=== PATIENT | female | born 1985 ===

== ENCOUNTER 2018-05-03 20:18 | Emergency (ER) | payer SELFPAY ==
[2018-05-03 21:18] VITALS: BP 103/67; PULSE 83; RESP 16; TEMP 98; O2SAT 99
[2018-05-03] MEDS ORDERED: Promethazine/Cod 6.25mg-10mg/5ml Syr UD PO STA (21:24)
[2018-05-03] MEDS ORDERED: Promethazine/Cod 6.25mg-10mg/5ml Syr UD ONE (21:31)
--- NOTE | 2018-05-03 21:33 | ED PDOC ---
HPI: Influenza Time Seen by Provider: 05/03/18 21:19 Chief Complaint: Cough, Cold, Congestion Chief Complaint (Provider): Cough, Throat Pain, Headache, Ear Pain History Per: Patient Exam Limitations: no limitations Onset/Duration Of Symptoms: Days Additional complaint(s):: 32 year old female presents for evaluation of a wet cough productive of green sputum, 9/10 throat pain, a 9/10 frontal headache, and right ear pain onset one week. Patient also reports chest pain exclusively with coughing episodes. She notes last taking Ibuprofen at 17:00 today with minimal relief. Otherwise, (-) fever, (-) chills, (-) diarrhea, (-) vomiting, (-) rash, (-) urinary symptoms, ( -) recent travel, (-) sick contact. LNMP: 04/27/2018 PMD: Clinic Past Medical History Reviewed: Historical Data, Nursing Documentation, Vital Signs Vital Signs: Last Vital Signs Temp 98 F 05/03/18 21:15 Pulse 83 05/03/18 21:15 Resp 16 05/03/18 21:15 BP 103/67 05/03/18 21:15 Pulse Ox 99 05/03/18 21:15 - Medical History Other PMH: ovarian cysts - Surgical History Surgical History: No Surg Hx - Family History Family History: States: Unknown Family Hx - Social History Current smoker - smoking cessation education provided: No Alcohol: None Drugs: Denies - Immunization History Hx Tetanus Toxoid Vaccination: No Hx Influenza Vaccination: No Hx Pneumococcal Vaccination: No - Home Medications Home Medications: Ambulatory Orders Medication Instructions Recorded Multivit/Folic Acid/I 1 tab PO DAILY #30 tab 10/12/16 [ Plus] Acetaminophen [Acetaminophen 8 650 mg PO Q8 PRN #21 tablet.er 05/03/18 Hour] Amoxicillin 875 mg PO BID #14 tablet 05/03/18 Naproxen [Naprosyn] 500 mg PO BID PRN #20 tablet 05/03/18 Promethazine/Dextromethorphan 5 ml PO Q6 PRN #150 ml 05/03/18 [Promethazine-Dm Syrup] - Allergies Allergies/Adverse Reactions: Allergies Allergy/AdvReac Type Severity Reaction Status Date / Time No Known Allergies Allergy Verified 10/12/16 20:36 Review of Systems ROS Statement: Except As Marked, All Systems Reviewed And Found Negative Constitutional: Negative for: Fever, Chills ENT: Positive for: Ear Pain (right), Throat Pain Cardiovascular: Positive for: Chest Pain (exclusively with coughing episodes) Respiratory: Positive for: Cough (wet), Sputum (green) Gastrointestinal: Negative for: Vomiting, Diarrhea Genitourinary Female: Negative for: Dysuria, Frequency Skin: Negative for: Rash Neurological: Positive for: Headache (frontal) Physical Exam - Reviewed Nursing Documentation Reviewed: Yes Vital Signs Reviewed: Yes - Physical Exam Comments: GENERAL APPEARANCE: Patient is awake, alert, oriented x 3, in no acute distress. SKIN: Warm, dry; (-) cyanosis, (-) rash. EYES: (-) conjunctival pallor, (-) scleral icterus, (-) conjunctival hemorrhage. ENMT: Mucous membranes moist. (-) rhinorrhea. TMs: (-) erythema, (-) bulging. Airway patent: (-) stridor. Pharynx: (+) erythema, (+) exudate, (+2 ) tonsillar hypertrophy. NECK: (-) tenderness, (-) stiffness, (-) meningismus, (-) lymphadenopathy. ABDOMEN AND GI: Soft; (-) tenderness, (-) guarding; (-) organomegaly; (-) mass ; (-) CVA tenderness. CHEST AND RESPIRATORY: (-) rales, (-) rhonchi, (-) wheezes; respirations even and non labored. HEART AND CARDIOVASCULAR: (-) irregularity; (-) murmur, (-) gallop. EXTREMITIES: (-) deformity; (-) cellulitis, (-) lymphangitis; (-) subungual hemorrhage; (-) edema. NEURO AND PSYCH: Mental status as above; (-) focal findings. Medical Decision Making Medical Decision Making: Time: 2123 Initial Impression: tonsillitis, headache, cough Initial Plan: --Amoxicillin 500 mg PO --Decadron 10 mg PO --Promethazine/Codeine 5 ml PO --Tylenol 650 mg PO --Throat culture --Rapid strep 2219 Patient reports persistent cough. Duoneb 3mL INH x1 ordered. 2249 Patient reports improvement of cough and is requesting additional Duoneb treatment. Duoneb 3mL INH ordered. 2324 Rapid Strep: negative On re-evaluation, patient reports improvement of symptoms, denies chest pain, SOB, headache, dizziness, nausea. On exam, patient remains AAOx3, in no acute distress. Neck is supple, lungs CTA, cardiac RRR, abdomen is soft and non-tender , neuro exam shows no focal findings. VSS, stable for discharge. Diagnostic results d/w the patient in great detail. Dx of tonsillitis, cough, headache d/w the patient. Based on history, exam and diagnostic results plan will be for discharge and outpatient follow up. Advised to follow up with primary care physician/clinic in 1-2 days without fail. Advised to take medication as prescribed. Return to the emergency room at any time for any new or worsening symptoms. Patient states she fully agrees with and understands discharge instructions. States that she agrees with the plan and disposition. Verbalized and repeated discharge instructions and plan. I have given the patient opportunity to ask any additional questions. Scribe Attestation: Documented by Maria R Mckenzie, acting as a scribe for Ruchi Worley PA-C. Provider Scribe Attestation: All medical record entries made by the Scribe were at my direction and personally dictated by me. I have reviewed the chart and agree that the record accurately reflects my personal performance of the history, physical exam, medical decision making, and the department course for this patient. I have also personally directed, reviewed, and agree with the discharge instructions and disposition. - ECG O2 Sat by Pulse Oximetry: 99 (RA) Pulse Ox Interpretation: Normal Disposition - Clinical Impression Clinical Impression: Tonsillitis, Throat pain in adult, Cough in adult patient, Headache - Patient ED Disposition Is Patient to be Admitted: No Counseled Patient/Family Regarding: Studies Performed, Diagnosis, Need For Followup, Rx Given - Disposition [facility]errals: [facility] Disposition: Routine/Home Disposition Time: 23:39 Condition: STABLE Additional Instructions: FOLLOW UP WITH PMD/CLINIC IN 1-2 DAYS WITHOUT FAIL. RETURN TO ED WITH ANY NEW OR WORSENING SYMPTOMS. Prescriptions: Acetaminophen [Acetaminophen 8 Hour] 650 mg PO Q8 PRN #21 tablet.er PRN Reason: PAIN, FEVER Amoxicillin 875 mg PO BID #14 tablet Naproxen [Naprosyn] 500 mg PO BID PRN #20 tablet PRN Reason: Pain, Moderate (4-7) Promethazine/Dextromethorphan [Promethazine-Dm Syrup] 5 ml PO Q6 PRN #150 ml PRN Reason: Cough Instructions: Cough in Adults, Sore Throat in Adults, Headache, Adult (DC) Forms: [employer] (Azeri) Print Language: BRUNEIAN - POA Present On Arrival: None Results - Lab Results Lab Results: 05/03/18 21:40 Grp A Beta Strep Ag Negative
[2018-05-03] MEDS ORDERED: Albuterol-Ipratrop 3 mg / 0.5 (3 ml) UD INH STA ×2 (22:20→22:51)
[2018-05-03] MEDS ORDERED: Albuterol-Ipratrop 3 mg / 0.5 (3 ml) UD ONE (22:23)
== END 2018-05-03 23:49 | disposition home or self-care (01) ==
LOC: H.ER 20:18
DX: J02.9 Acute pharyngitis, unspecified (principal); R05 Cough; R51 Headache
CPT/HCPCS: 87070; 87430; 96372; 99282; J1100

== ENCOUNTER 2018-05-06 00:37 | Emergency (ER) | payer SELFPAY ==
[2018-05-06 01:08] VITALS: O2SAT 98
[2018-05-06] MEDS ORDERED: Albuterol-Ipratrop 3 mg / 0.5 (3 ml) UD IH STA (02:17)
--- NOTE | 2018-05-06 02:18 | ED PDOC ---
HPI: CCC, URI, Sore Throat Time Seen by Provider: 05/06/18 02:10 Chief Complaint (Nursing): Cough, Cold, Congestion Chief Complaint (Provider): cough History Per: Patient History/Exam Limitations: no limitations Onset/Duration Of Symptoms: Days (10) Current Symptoms Are (Timing): Still Present Associated Symptoms: Sore Throat, Cough, Sputum, Nasal Congestion Additional Complaint(s): 32 y/o female presents for evaluation of persistent cough x 10 days. Patient was evaluated here for same on 05/03 and prescribed Amoxicillin, Promethazine DM, and Tylenol for symptoms. Patient reports no improvement on medications; states she went to [place] ED yesterday and had chest xray which was normal and was prescribed Promethazine with codeine. Patient presents now stating she is still not able to sleep due to cough, which worsens when she lays down. Patient also notes post-tussive vomiting, and pain in her throat with coughing. Denies fever, chest pain, shortness of breath, palpitations, abdominal pain, recent travel, sick contacts. Past Medical History Reviewed: Historical Data, Nursing Documentation, Vital Signs Vital Signs: Last Vital Signs Temp 98.2 F 05/06/18 01:05 Pulse 93 H 05/06/18 01:05 Resp 18 05/06/18 01:05 BP 129/77 05/06/18 01:05 Pulse Ox 98 05/06/18 03:23 - Medical History PMH: No Chronic Diseases - Surgical History Surgical History: No Surg Hx - Family History Family History: States: Unknown Family Hx - Social History Current smoker - smoking cessation education provided: No - Immunization History Hx Tetanus Toxoid Vaccination: No Hx Influenza Vaccination: No Hx Pneumococcal Vaccination: No - Home Medications Home Medications: Ambulatory Orders Medication Instructions Recorded Multivit/Folic Acid/I 1 tab PO DAILY #30 tab 10/12/16 [ Plus] Acetaminophen [Acetaminophen 8 650 mg PO Q8 PRN #21 tablet.er 05/03/18 Hour] Amoxicillin 875 mg PO BID #14 tablet 05/03/18 Naproxen [Naprosyn] 500 mg PO BID PRN #20 tablet 05/03/18 Promethazine/Dextromethorphan 5 ml PO Q6 PRN #150 ml 05/03/18 [Promethazine-Dm Syrup] Albuterol HFA [Ventolin HFA 90 1 puff IH Q4 PRN #1 inh 05/06/18 mcg/actuation (8 g)] Fluticasone Nasal [Flonase] 1 actuation NS BID #1 bottle 05/06/18 Prednisone 50 mg PO DAILY #4 tablet 05/06/18 - Allergies Allergies/Adverse Reactions: Allergies Allergy/AdvReac Type Severity Reaction Status Date / Time No Known Allergies Allergy Verified 10/12/16 20:36 Review of Systems ROS Statement: Except As Marked, All Systems Reviewed And Found Negative Respiratory: Positive for: Cough Physical Exam - Reviewed Nursing Documentation Reviewed: Yes Vital Signs Reviewed: Yes - Physical Exam Appears: Positive for: Well, Non-toxic, Uncomfortable (tearful/anxious) Head Exam: Positive for: ATRAUMATIC, NORMAL INSPECTION, NORMOCEPHALIC Skin: Positive for: Normal Color Eye Exam: Positive for: Normal appearance ENT: Positive for: Normal ENT Inspection Cardiovascular/Chest: Positive for: Regular Rate, Rhythm Respiratory: Positive for: Normal Breath Sounds Gastrointestinal/Abdominal: Positive for: Normal Exam Back: Positive for: Normal Inspection Extremity: Positive for: Normal ROM Neurologic/Psych: Positive for: Alert, Oriented - ECG O2 Sat by Pulse Oximetry: 98 - Progress ED Course And Treament: duonebs, IV solumedrol On re-eval, patient sleeping; upon awakening states she tolerated water Patient educated on findings, discharged with rx Flonase, albuterol HFA, prednisone Advised to continue previous medications Follow up with PMD in 2-3 days. Return precautions given Disposition - Clinical Impression Clinical Impression: Cough in adult patient - Patient ED Disposition Is Patient to be Admitted: No Counseled Patient/Family Regarding: Studies Performed, Diagnosis, Need For Followup, Rx Given - Disposition Disposition: Routine/Home Disposition Time: 03:15 Condition: IMPROVED Prescriptions: Albuterol HFA [Ventolin HFA 90 mcg/actuation (8 g)] 1 puff IH Q4 PRN #1 inh PRN Reason: Wheezing Fluticasone Nasal [Flonase] 1 actuation NS BID #1 bottle Prednisone 50 mg PO DAILY #4 tablet Instructions: Cough in Adults Forms: [facility] ED School/Work Excuse Print Language: GHANAIAN
[2018-05-06] MEDS ORDERED: Albuterol-Ipratrop 3 mg / 0.5 (3 ml) UD INH STA (02:22)
[2018-05-06] MEDS ORDERED: Albuterol-Ipratrop 3 mg / 0.5 (3 ml) UD ONE (02:27)
[2018-05-06 05:30] VITALS: BP 112/72; PULSE 82; RESP 16; TEMP 98.1
== END 2018-05-06 03:23 | disposition home or self-care (01) ==
LOC: H.ER 00:37
DX: R05 Cough (principal)
CPT/HCPCS: 81025; 96374; 99283; J2930